=== PATIENT | female | born 2000 | race Two or more races ===

== ENCOUNTER 2022-12-27 12:51 | Emergency (ER) | payer OTHER ==
[2022-12-27 12:58] VITALS: BP 108/62; PULSE 78; RESP 18; TEMP 99; BMI 26.3
[2022-12-27] MEDS ORDERED: diphenhydrAMINE HCL 25 MG CAPSULE (FP) PO ONE ×2 (13:41→13:44)
[2022-12-27] MEDS ORDERED: DEXAMETHASONE 4 MG TABLET (FP) PO ONE (13:41)
[2022-12-27] MEDS ORDERED: DEXAMETHASONE SOD PHOSPHATE 10 MG/1 ML VIAL ONE (13:44)
[2022-12-27] MEDS ORDERED: KETOROLAC TROMETHAMINE 30 MG/1 ML VIAL IM ONE (13:51)
[2022-12-27] MEDS ORDERED: KETOROLAC TROMETHAMINE 30 MG/1 ML VIAL ONE (13:53)
== END 2022-12-27 14:36 | disposition home or self-care (01) ==
LOC: JERFT 12:51
PROC: 3E0233Z Introduction of Anti-inflammatory into Muscle, Percutaneous Approach (ICD-10-PCS; principal; 2022-12-27)
DX: T63.441A Toxic effect of venom of bees, accidental (unintentional), initial encounter (principal); R22.31 Localized swelling, mass and lump, right upper limb; M79.641 Pain in right hand
CPT/HCPCS: 99284-25